=== PATIENT | male | born 1995 | race Two or more races ===

== ENCOUNTER 2016-08-08 07:03 | Emergency (ER) | payer OTHER ==
[2016-08-08 07:13] VITALS: BP 148/72; PULSE 68; TEMP 97.5; BMI 35.2
--- NOTE | 2016-08-08 08:30 | PDOC ---
History of Present Illness - General Chief Complaint: Pain Stated Complaint: ABD PAIN Time Seen by Provider: 08/08/16 08:05 History Source: Patient Exam Limitations: No Limitations - History of Present Illness Initial Comments: 08/08/16 08:34 Chief complaint: Burning with urination History of present illness: Patient is a 20-year-old male with a history of asthma here today due to burning with urination 2 weeks with no penile discharge. Patient reports that he was seen by his primary care provider 3 weeks ago due to noticing a knee minimally raised bumps (not filled with fluid) around the polanco of his penis. Patient reports to having unprotected sex with 2 females. Patient was not tested for STDs by his primary care physician. Patient is concerned that he might have a sexually transmitted disease and is requesting testing and treatment prophylactically. Patient denies any lesions on his penis or any testicular pain. Patient denies any urgency frequency or hematuria. 08/09/16 08:46 08/09/16 08:46 Timing/Duration: changing over time Severity: moderate (burning with urination ) Associated Symptoms: reports: other (no penile discharge ) Past History - Past Medical History Allergies/Adverse Reactions: Allergies Allergy/AdvReac Type Severity Reaction Status Date / Time Penicillins Allergy Severe Hives Verified 08/08/16 07:13 Sulfa (Sulfonamide Allergy Severe Hives Verified 08/08/16 07:13 Antibiotics) Home Medications: Ambulatory Orders NK [No Known Home Medication] 08/08/16 Asthma: Yes - Surgical History Appendectomy: Yes - Reproductive History Testicular Surgery: No Testicular Torsion: No - Immunization History Immunization Up to Date: Yes - Psycho/Social/Smoking Cessation Hx Anxiety: No Suicidal Ideation: No Smoking History: Never smoked Hx Alcohol Use: No Drug/Substance Use Hx: No Substance Use Type: None Review of Systems - Review of Systems Able to Perform ROS?: Yes Constitutional: No: Symptoms Reported HEENTM: No: Symptoms Reported Respiratory: No: Symptoms reported Cardiac (ROS): No: Symptoms Reported ABD/GI: No: Symptoms Reported : Yes: Burning (with urination for 2 weeks, ), Discharge, Other (tiny bumps around polanco of penis 3 weeks ago minimal presently ). No: Frequency, Flank Pain, Hematuria, Incontinence, Pain, Urgency, Testicular Mass, Testicular Swelling, Lesions, Testicular Pain Musculoskeletal: No: Symptoms Reported Integumentary: No: Symptoms Reported Neurological: No: Symptoms reported *Physical Exam - Vital Signs Last Vital Signs Temp Pulse Resp BP Pulse Ox 97.5 F L 68 20 148/72 99 08/08/16 07:10 08/08/16 07:10 08/08/16 07:10 08/08/16 07:10 08/08/16 07:10 - Physical Exam General Appearance: Yes: Appropriately Dressed Respiratory/Chest: positive: Lungs Clear, Normal Breath Sounds. negative: Chest Tender, Respiratory Distress Cardiovascular: positive: Regular Rhythm, Regular Rate, S1, S2 Male Genitalia: positive: normal genitalia (uncircumcised), other (few scattered non erythematous tiny raised bumps around polanco of penis ). negative : discharge, testicular tenderness, testicular mass, epididymus tender, inguinal hernia, hernia, hematuria Integumentary: positive: Other (see under male genitalia) Medical Decision Making - Medical Decision Making 08/08/16 08:36 Patient is a 20-year-old male with a history of asthma here today due to burning with urination 2 weeks with no penile discharge. Patient reports that he was seen by his primary care provider 3 weeks ago due to noticing a knee minimally raised bumps around the polanco of his penis. Patient reports to having unprotected sex with 2 females. Patient was not tested for STDs by his primary care physician. Patient is concerned that he might have a sexually transmitted disease and is requesting testing and treatment prophylactically. Patient denies any lesions on his penis or any testicular pain. Rule out sexually transmitted diseases Will treat prophylactically for GC and chlamydia Rule out HIV Plan: Chlamydia and gonorrhea amplification RPR negative HIV 1 and 2 for generation testing Azithromycin 2 g by mouth now will not treat with Rocephin due to patient having allergy to penicillin with hives in childhood Laboratory Tests 08/08/16 08:30 RPR Titer Nonreactive 08/08/16 09:08 08/08/16 09:09 08/08/16 10:24 Laboratory Tests 08/08/16 08:30 HIV 1&2 Antibody Screen Negative HIV P24 Antigen Negative 08/08/16 10:57 08/09/16 08:47 *DC/Admit/Observation/Transfer Diagnosis at time of Disposition: Unprotected sexual intercourse - Discharge Dispostion Disposition: HOME Condition at time of disposition: Stable - Referrals Referrals: Rohit Herring MD [Primary Care Provider] - - Patient Instructions Additional Instructions: Follow-up with your primary care provider within the next few days Return Here in 3 days for final results of testing that was done today that is still pending Return to emergency room if symptoms worsen any difficulty urinating or persistent symptoms Patient voiced understanding of discharge instructions and all questions were answered
[2016-08-08] MEDS ORDERED: AZITHROMYCIN 1 GM PACKET PO ONE (08:45)
[2016-08-08] MEDS ORDERED: AZITHROMYCIN 1 GM PACKET ONE (08:48)
[2016-08-08 09:39] LABS: HIV 1 & 2 AB NEGATIVE; HIV 1 AGp24 NEGATIVE
== END 2016-08-08 11:01 | disposition home or self-care (01) ==
LOC: JERFT 07:03 → JER 07:03 → JERFT 11:01
DX: Z11.3 Encounter for screening for infections with a predominantly sexual mode of transmission (principal)
CPT/HCPCS: 36415; 86593; 87389; 87491; 87591; 99281-25

== ENCOUNTER 2017-02-23 16:41 | Emergency (ER) | payer OTHER ==
[2017-02-23 16:46] VITALS: BP 122/83; PULSE 100; TEMP 98.4; BMI 34.9
[2017-02-23] MEDS ORDERED: KETOROLAC TROMETHAMINE 60 MG/2 ML VIAL IM ONE (17:30)
[2017-02-23] MEDS ORDERED: diphenhydrAMINE HCL 25 MG CAPSULE (FP) PO ONE ×2 (17:31→17:33)
[2017-02-23] MEDS ORDERED: METOCLOPRAMIDE HCL 10 MG TABLET (FP) PO ONE ×2 (17:31→17:39)
[2017-02-23] MEDS ORDERED: KETOROLAC TROMETHAMINE 60 MG/2 ML VIAL ONE (17:33)
--- NOTE | 2017-02-23 17:34 | PDOC ---
History of Present Illness - General Chief Complaint: Headache Stated Complaint: HEADACHE Time Seen by Provider: 02/23/17 17:17 History Source: Patient Exam Limitations: No Limitations - History of Present Illness Initial Comments: 02/23/17 17:41 My Chief Complaint' Right sided headache with photophobia History of present illness: Patient is a 21-year-old male with history of asthma here today complaining of right parietal headache that waxes and weans 4 days with photophobia and nausea today. Patient denies any head injury and. Patient reports that headache presently is approximately a 5. Patient reports taking ibuprofen yesterday with some relief of pain however pain return today. Patient has been able to sleep and has not woken up by pain. Patient fever, chills, or any other symptoms. He denies any nasal congestion or any discharge from his right eye. 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 Patient initially denied any neck pain however was able to appreciate neck pain with palpation. 02/23/17 17:46 02/23/17 18:48 Timing/Duration: reports: waxing and waning (for 4 days ) Severity: Yes: moderate (rt. parietal headache waxes and wanes) Associated Symptoms: reports: nausea/vomiting (nausea earlier today ), other. denies: fever/chills, loss of consciousness, ringing in ears, trouble walking, vision changes Past History - Past Medical History Allergies/Adverse Reactions: Allergies Allergy/AdvReac Type Severity Reaction Status Date / Time Penicillins Allergy Severe Hives Verified 02/23/17 16:46 Sulfa (Sulfonamide Allergy Severe Hives Verified 02/23/17 16:46 Antibiotics) Home Medications: Ambulatory Orders NK [No Known Home Medication] 08/08/16 Asthma: Yes - Surgical History Appendectomy: Yes - Reproductive History Testicular Surgery: No Testicular Torsion: No - Immunization History Immunization Up to Date: Yes - Suicide/Smoking/Psychosocial Hx Smoking History: Never smoked Hx Alcohol Use: No Drug/Substance Use Hx: No Substance Use Type: None Review of Systems - Review of Systems Able to Perform ROS?: Yes Constitutional: No: Symptoms Reported HEENTM: No: Symptoms Reported Respiratory: No: Symptoms reported Cardiac (ROS): No: Symptoms Reported ABD/GI: No: Symptoms Reported : No: Symptoms Reported Musculoskeletal: Yes: Neck Pain (did not report initially ) Integumentary: No: Symptoms Reported Neurological: Yes: Headache (rt. parietal ) *Physical Exam - Vital Signs Last Vital Signs Temp Pulse Resp BP Pulse Ox 98.4 F 100 H 20 122/83 97 02/23/17 16:43 02/23/17 16:43 02/23/17 16:43 02/23/17 16:43 02/23/17 16:43 - Physical Exam General Appearance: Yes: Appropriately Dressed HEENT: positive: EOMI, KATHY, Normal ENT Inspection Neck: positive: Tender lateral (right). negative: Lymphadenopathy (R), Lymphadenopathy (L), Rigidity, Tender midline Respiratory/Chest: positive: Lungs Clear, Normal Breath Sounds. 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 negative: Respond to painful stimul, Numbness, Sensory Deficit Medical Decision Making - Medical Decision Making 02/23/17 17:41 02/23/17 17:45 Patient is a 21-year-old male with history of asthma here today complaining of right parietal headache that waxes and weans 4 days with photophobia and nausea today. Patient denies any head injury and. Patient reports that headache presently is approximately a 5. Patient reports taking ibuprofen yesterday with some relief of pain however pain return today. Patient has been able to sleep and has not woken up by pain. Patient denies fever, chills, or any other symptoms. 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 Patient initially denied any neck pain however was able to appreciate neck pain with palpation. 02/23/17 17:46 r/o migraine neck strain rt. headache PLAN: toradol 60 mg IM now reglan 10 mg po now benadryl 25 mg po now throat C & S rapid negative 02/23/17 17:46 02/23/17 18:37 will flexeril 10 mg po q 8 hr prn # 21 days Naprosyn 500 mg q 12 hr prn pain # 14 tabs 02/23/17 18:49 *DC/Admit/Observation/Transfer Diagnosis at time of Disposition: Strain of neck muscle Qualifiers: Encounter type: initial encounter Qualified Code(s): S16.1XXA - Strain of muscle, fascia and tendon at neck level, initial encounter; S16.1XXA - Strain of muscle, fascia and tendon at neck level, initial encounter Headache Qualifiers: Headache type: unspecified Headache chronicity pattern: unspecified pattern Intractability: not intractable Qualified Code(s): R51 - Headache; R51 - Headache - Discharge Dispostion Disposition: HOME Condition at time of disposition: Stable - Patient Instructions Additional Instructions: Follow-up with your primary care provider within the next couple of days for further evaluation You may lie a warm compress to right lateral neck every few hours to help alleviate pain Do not drive or do anything that requires alertness when taking Flexeril or cyclobenzaprine Return to emergency room if symptoms worsen or new symptoms develop Patient voiced understanding of discharge instructions and all questions were answered
== END 2017-02-23 18:50 | disposition home or self-care (01) ==
LOC: JERFT 16:41
PROC: 3E0233Z Introduction of Anti-inflammatory into Muscle, Percutaneous Approach (ICD-10-PCS; principal; 2017-02-23)
DX: S16.1XXA Strain of muscle, fascia and tendon at neck level, initial encounter (principal); R51 Headache; X50.3XXA Overexertion from repetitive movements, initial encounter; Y93.89 Activity, other specified; Y92.89 Other specified places as the place of occurrence of the external cause; Y99.8 Other external cause status
CPT/HCPCS: 87070; 87077; 87430; 96372; 99281-25

== ENCOUNTER 2017-10-08 16:41 | Emergency (ER) | payer OTHER ==
[2017-10-08 16:59] VITALS: BP 128/63; PULSE 92; TEMP 98.1; BMI 35.9
--- NOTE | 2017-10-08 17:00 | PDOC ---
Rapid Medical Evaluation Chief Complaint: Back Pain Time Seen by Provider: 10/08/17 16:57 Medical Evaluation: Allergies Allergy/AdvReac Type Severity Reaction Status Date / Time Penicillins Allergy Severe Hives Verified 10/08/17 16:55 Sulfa (Sulfonamide Allergy Severe Hives Verified 10/08/17 16:55 Antibiotics) 10/08/17 16:58 I have performed a brief in-person evaluation of this patient. The patient presents with a chief complaint of: back pain x 1 week , atraumatc, - denies fevers/ Dysuria/ bowel px, No trauma known Pertinent physical exam findings: pale, no limp , mid to lumbar tension I have ordered the following: UA The patient will proceed to the ED for further evaluation.
[2017-10-08 17:31] LABS: URINE APPEARANCE CLEAR; URINE BILIRUBIN NEGATIVE (<2.0 mg/dL); URINE BLOOD NEGATIVE (NEGATIVE); URINE COLOR YELLOW; URINE GLUCOSE (UA) NEGATIVE (NEGATIVE); URINE KETONE NEGATIVE (NEGATIVE); URINE LEUK ESTERASE NEGATIVE (NEGATIVE); URINE NITRITE NEGATIVE (NEGATIVE); URINE PROTEIN NEGATIVE (NEGATIVE)
[2017-10-08] MEDS ORDERED: KETOROLAC TROMETHAMINE 60 MG/2 ML VIAL IM ONE (17:54)
[2017-10-08] MEDS ORDERED: RANITIDINE HCL 150 MG TABLET (FP) PO ONE (17:54)
--- NOTE | 2017-10-08 17:58 | PDOC ---
History of Present Illness - General Chief Complaint: Back Pain Stated Complaint: BACK PAIN Time Seen by Provider: 10/08/17 16:57 - History of Present Illness Initial Comments: 22-year-old healthy male presents for evaluation of atraumatic onset of mid back pain 10 days. He has a past medical history significant for asthma. He points to the left side of his thoracic or lumbar spine as the area of his discomfort. His pain is exacerbated with activity relieved with rest and free of radiation. He describes his pain as achy. No prior problems with that area of his back. No other associated symptoms. He denies fever, chills, night sweats , nausea, vomiting, diarrhea, and abdominal pain. 10/08/17 17:54 Past History - Past Medical History Allergies/Adverse Reactions: Allergies Allergy/AdvReac Type Severity Reaction Status Date / Time Penicillins Allergy Severe Hives Verified 10/08/17 16:55 Sulfa (Sulfonamide Allergy Severe Hives Verified 10/08/17 16:55 Antibiotics) Home Medications: Ambulatory Orders Cyclobenzaprine HCl [Flexeril 10 mg] 10 mg PO HS PRN #10 tablet 10/08/17 Ibuprofen [Motrin -] 600 mg PO TID #30 tablet 10/08/17 Asthma: Yes - Surgical History Appendectomy: Yes - Reproductive History Testicular Surgery: No Testicular Torsion: No - Immunization History Immunization Up to Date: Yes - Suicide/Smoking/Psychosocial Hx Smoking History: Never smoked Hx Alcohol Use: No Drug/Substance Use Hx: No Substance Use Type: None Review of Systems - Review of Systems Musculoskeletal: Yes: Back Pain All Other Systems: Reviewed and Negative *Physical Exam - Vital Signs Last Vital Signs Temp Pulse Resp BP Pulse Ox 98.1 F 92 H 18 128/63 97 10/08/17 16:56 10/08/17 16:56 10/08/17 16:56 10/08/17 16:56 10/08/17 16:56 - Physical Exam Comments: GENERAL: The patient is awake, alert, and fully oriented, in no acute distress. HEAD: Normal with no signs of trauma. EYES: Pupils equal, round and reactive to light, extraocular movements intact, sclera anicteric, conjunctiva clear. ENT: Ears normal, nares patent, oropharynx clear without exudates. Moist mucous membranes. NECK: Normal range of motion, supple without lymphadenopathy, JVD, or masses. LUNGS: Breath sounds equal, clear to auscultation bilaterally. No wheezes, and no crackles. HEART: Regular rate and rhythm, normal S1 and S2 without murmur, rub or gallop. ABDOMEN: Soft, nontender, normoactive bowel sounds. No guarding, no rebound. No masses. EXTREMITIES: Normal range of motion, no edema. No clubbing or cyanosis. No cords, erythema, or tenderness. NEUROLOGICAL: Cranial nerves II through XII grossly intact. Normal speech, normal gait. PSYCH: Normal mood, normal affect. SKIN: Warm, Dry, normal turgor, no rashes or lesions noted. The Dirocco lumbar spine is normal skin color and temperature. He has no tenderness mild palpable left-sided Dirocco lumbar musculature spasm. He has no CVA tenderness. He has 5 out of 5 strength in bilateral upper and lower extremities. He has no gross sensorimotor deficits he has a negative Spurling sign and negative straight leg raise test bilaterally. He is neurovascularly intact. 10/08/17 17:55 Medical Decision Making - Medical Decision Making Is is most likely a Dirocco lumbar strain. I'll await the urinalysis in the meantime treat his pain with Toradol and Zantac. 10/08/17 17:56 *DC/Admit/Observation/Transfer Diagnosis at time of Disposition: Strain of mid-back - Discharge Dispostion Disposition: HOME Condition at time of disposition: Stable Decision to Admit order: No - Prescriptions Prescriptions: Cyclobenzaprine HCl [Flexeril 10 mg] 10 mg PO HS PRN #10 tablet PRN Reason: Muscle Spasms Ibuprofen [Motrin -] 600 mg PO TID #30 tablet - Referrals Referrals: Rohit Herring MD [Primary Care Provider] - Roly Benjamin MD [Staff Physician] - - Patient Instructions Printed Discharge Instructions: DI for Back Strain or Sprain Additional Instructions: This is a strain of the muscles and your mid back. I've given you a prescription for an anti-inflammatory as well as a muscle relaxer. The anti- inflammatory should be taken with food. The muscle relaxer is one pill prior to bedtime. It's important few to follow-up with spine surgery for further evaluation and treatment options. Return to the emergency room if your symptoms worsen or go unresolved prior to follow-up. - Post Discharge Activity
[2017-10-08] MEDS ORDERED: KETOROLAC TROMETHAMINE 60 MG/2 ML VIAL ONE (18:18)
[2017-10-08] MEDS ORDERED: RANITIDINE HCL 150 MG TABLET (FP) ONE (18:18)
== END 2017-10-08 18:53 | disposition home or self-care (01) ==
LOC: JERFT 16:41
PROC: 3E0233Z Introduction of Anti-inflammatory into Muscle, Percutaneous Approach (ICD-10-PCS; principal; 2017-10-08)
DX: S39.012A Strain of muscle, fascia and tendon of lower back, initial encounter (principal); X58.XXXA Exposure to other specified factors, initial encounter; Y93.89 Activity, other specified; Y92.89 Other specified places as the place of occurrence of the external cause; Y99.8 Other external cause status
CPT/HCPCS: 81003; 96372; 99281-25

== ENCOUNTER 2018-06-26 10:26 | Emergency (ER) | payer OTHER ==
[2018-06-26] MEDS ORDERED: IBUPROFEN 400 MG TABLET (FP) PO ONE ×2 (10:47→10:51)
[2018-06-26 10:52] VITALS: BP 160/90; PULSE 114; TEMP 102; BMI 35.5
[2018-06-26] MEDS ORDERED: KETOROLAC TROMETHAMINE 10 MG TABLET PO ONE (11:24)
--- NOTE | 2018-06-26 11:32 | PDOC ---
History of Present Illness - General Chief Complaint: Cold Symptoms Stated Complaint: FLU SYMSPTOMS Time Seen by Provider: 06/26/18 11:05 History Source: Patient Exam Limitations: No Limitations - History of Present Illness Initial Comments: 06/26/18 13:07 States had onset of chills, body aches, fevers Tmax 102 at home, sore throat and ear pain. And moist nonproductive cough. States has been using his Proventil pump with some resolved. Was exposed to family members with influenza this week Timing/Duration: reports: just prior to arrival Severity: reports: moderate Associated Symptoms: reports: chest pain/soreness, cough, earache, fever/chills , nasal congestion, nasal drainage, sore throat Past History - Travel Traveled outside of the country in the last 30 days: No Close contact w/someone who was outside of country & ill: No - Past Medical History Allergies/Adverse Reactions: Allergies Allergy/AdvReac Type Severity Reaction Status Date / Time Penicillins Allergy Severe Hives Verified 06/26/18 10:45 Sulfa (Sulfonamide Allergy Severe Hives Verified 06/26/18 10:45 Antibiotics) Home Medications: Ambulatory Orders Acetaminophen [Tylenol] 650 mg PO QID PRN 06/26/18 Oseltamivir Phosphate [Tamiflu -] 75 mg PO BID #10 capsule 06/26/18 Phenylephrine/Acetaminophn/Cpm [Contac Cold-Flu Caplet] 1 each PO ASDIR Asthma: Yes - Surgical History Appendectomy: Yes - Reproductive History Testicular Surgery: No Testicular Torsion: No - Immunization History Immunization Up to Date: Yes - Suicide/Smoking/Psychosocial Hx Smoking History: Never smoked Hx Alcohol Use: No Drug/Substance Use Hx: No Substance Use Type: None Respiratory Specific PMHX - Complaint Specific PMHX Angina: No Bronchitis: Yes Pneumonia: No Pulmonary Embolus: No TB (Tuberculosis): No Review of Systems - Review of Systems Able to Perform ROS?: Yes Is the patient limited Russian proficient: Yes Constitutional: Yes: Symptoms Reported, See HPI, Malaise HEENTM: Yes: Symptoms Reported Respiratory: Yes: See HPI, Cough ABD/GI: Yes: Symptoms Reported Musculoskeletal: Yes: Symptoms Reported, See HPI, Back Pain All Other Systems: Reviewed and Negative *Physical Exam - Vital Signs Last Vital Signs Temp Pulse Resp BP Pulse Ox 102 F H 114 H 18 160/90 96 06/26/18 10:51 06/26/18 10:51 06/26/18 10:51 06/26/18 10:51 06/26/18 10:51 - Physical Exam Comments: 06/26/18 13:09 GENERAL: [ The pateint is awake, alert, and appropriately interactive.] EYES: [The pupils are equal, round, and reactive to light, with clear, conjunctiva.but glassy] NOSE: [The nose with clear drainage EARS: [The ear canals and tympanic membranes are congested but landmarks easily visualed ] THROAT: [The oropharynx is clear with erythema, no exudates. The mucous membranes are moist.] NECK: [The neck is supple with mildly tender adenopathy, no menigemous] CHEST: [The lungs are coarse but clear without crackles, or wheezes.] HEART: [Heart is regular rhythm, with normal S1 and S2, no murmurs.] ABDOMEN: [The abdomen is soft and nontender with normal bowel sounds. There is no organomegaly and no mass. There is no guarding or rebound.] EXTREMITIES: [Extremities are normal.] NEURO: [Behavior is normal for age.cranky but easily, Tone is normal.] SKIN: [Skin is unremarkable without rash or swelling. There is no bruising, and there are no other signs of injury.] General Appearance: Yes: Appropriately Dressed Moderate Sedation - Procedure Monitoring Vital Signs: Procedure Monitoring Vital Signs Temperature 102 F H 06/26/18 10:51 Pulse Rate 114 H 06/26/18 10:51 Respiratory Rate 18 06/26/18 10:51 Blood Pressure 160/90 06/26/18 10:51 O2 Sat by Pulse Oximetry (%) 96 06/26/18 10:51 ED Treatment Course - Medications Given in the ED: ED Medications Discontinued Medications Generic Name Dose Route Start Last Admin Trade Name Freq PRN Reason Stop Dose Admin Ibuprofen 800 mg 06/26/18 10:51 06/26/18 10:51 Motrin - PO 06/26/18 10:52 800 mg NOW ONE Administration Progress Note - Progress Note Progress Note: All clinical evidence indicates influenza With Tamiflu *DC/Admit/Observation/Transfer Diagnosis at time of Disposition: Influenzal acute upper respiratory infection - Discharge Dispostion Disposition: HOME Condition at time of disposition: Stable Decision to Admit order: No - Prescriptions Prescriptions: Oseltamivir Phosphate [Tamiflu -] 75 mg PO BID #10 capsule - Referrals Referrals: Rohit Herring MD [Primary Care Provider] - - Patient Instructions Printed Discharge Instructions: DI for Viral Upper Respiratory Infection -- Adult Additional Instructions: Rest, drink lots of fluids: Teas, water, soups, Pedialyte Saltwater gargles Steamy showers/seem to face break up mucus Old-fashioned treatments help! Avoid contact with others until fevers and cough resolved as this is very contagious Lots of handwashing and good hygiene Continue [id number] medications for symptomatic relief Tylenol or Motrin for fever and pain Take all of Tamiflu as directed: 1 tab every 12 hours for 5 days Followup with private physician in one to 2 days as needed or if worsening Return to emergency department for worsened symptoms, fevers, dehydration Influenza takes between 5 and 7 days for resolution To not participate in any activity, work, or school until fevers and cough are gone for at least one day - Post Discharge Activity Forms/Work/School Notes: Back to Work
== END 2018-06-26 11:45 | disposition home or self-care (01) ==
LOC: JERFT 10:26
DX: J11.1 Influenza due to unidentified influenza virus with other respiratory manifestations (principal)
CPT/HCPCS: 99281-25

== ENCOUNTER 2021-10-05 08:37 | Emergency (ER) | payer OTHER ==
[2021-10-05 09:15] VITALS: BP 128/79; PULSE 66; TEMP 98; BMI 34.0
[2021-10-05] MEDS ORDERED: IBUPROFEN 400 MG TABLET (FP) PO ONE ×2 (09:22→09:36)
== END 2021-10-05 12:39 | disposition home or self-care (01) ==
LOC: JER 08:37
DX: R51.9 Headache, unspecified (principal)
CPT/HCPCS: 99283-25

== ENCOUNTER 2022-03-26 13:21 | Emergency (ER) | payer OTHER ==
[2022-03-26 15:00] VITALS: BP 136/77; PULSE 84; RESP 18; TEMP 97.4; BMI 38.9
[2022-03-26] MEDS ORDERED: ALBUTEROL SO4 2.5/IPRATROPIUM 0.5 INH SOL 3 ML VIAL.NEB. NEB ONE ×2 (16:48→17:40)
== END 2022-03-26 19:00 | disposition home or self-care (01) ==
LOC: JER 13:21
PROC: 3E0F7GC Introduction of Other Therapeutic Substance into Respiratory Tract, Via Natural or Artificial Opening (ICD-10-PCS; principal; 2022-03-26)
DX: J45.909 Unspecified asthma, uncomplicated (principal); R07.9 Chest pain, unspecified
CPT/HCPCS: 93005; 93010; 99283-25

== ENCOUNTER 2022-07-25 23:44 | Emergency (ER) | payer OTHER ==
[2022-07-25 23:49] VITALS: BP 145/80; PULSE 74; RESP 18; TEMP 97.9; BMI 34.3
[2022-07-26] MEDS ORDERED: predniSONE 20 MG TABLET (UD) PO ONE (00:18)
[2022-07-26] MEDS ORDERED: IBUPROFEN 400 MG TABLET (FP) PO ONE ×2 (00:19→00:25)
[2022-07-26] MEDS ORDERED: predniSONE 20 MG TABLET (UD) ONE (00:25)
[2022-07-26] MEDS: ALBUTEROL SO4 2.5/IPRATROPIUM 0.5 INH SOL 3 ML VIAL.NEB. NEB SCH ×2 (00:49→01:15)
[2022-07-26] MEDS ORDERED: LORATADINE 10 MG TABLET PO ONE (01:43)
[2022-07-26] MEDS ORDERED: LORATADINE 10 MG TABLET ONE (01:57)
== END 2022-07-26 02:06 | disposition home or self-care (01) ==
LOC: JER 23:44
PROC: 3E0F7GC Introduction of Other Therapeutic Substance into Respiratory Tract, Via Natural or Artificial Opening (ICD-10-PCS; principal; 2022-07-26)
DX: J45.998 Other asthma (principal); Z20.822 Contact with and (suspected) exposure to COVID-19
CPT/HCPCS: 0241U-QW; 71046-TC-FY; 99284-25

== ENCOUNTER 2022-09-16 22:06 | Emergency (ER) | payer OTHER ==
[2022-09-16 22:14] VITALS: BP 128/64; PULSE 74; RESP 20; TEMP 98.2; BMI 34.1
[2022-09-16] MEDS ORDERED: DEXAMETHASONE SOD PHOSPHATE 10 MG/1 ML VIAL PO ONE (22:48)
[2022-09-16] MEDS ORDERED: ACETAMINOPHEN 500 MG TABLET (FP) PO ONE (22:48)
[2022-09-16] MEDS ORDERED: ACETAMINOPHEN 500 MG TABLET (FP) ONE (22:49)
[2022-09-16] MEDS ORDERED: DEXAMETHASONE SOD PHOSPHATE 10 MG/1 ML VIAL ONE (22:50)
== END 2022-09-16 23:26 | disposition home or self-care (01) ==
LOC: JER 22:06
DX: J02.9 Acute pharyngitis, unspecified (principal)
CPT/HCPCS: 99283-25; J1100

== ENCOUNTER 2023-02-12 16:04 | Emergency (ER) | payer SELFPAY ==
[2023-02-12 16:11] VITALS: BP 100/64; PULSE 85; RESP 20; TEMP 97.6; BMI 29.2
[2023-02-12 18:42] LABS: HEMATOCRIT 50.8 % (35.4-49); HEMOGLOBIN 17.7 GM/dL (11.7-16.9); MCH 29.5 pg (25.7-33.7); MCHC 34.8 g/dl (32.0-35.9); MEAN CELL VOLUME 84.7 fl (80-96); MEAN PLT VOLUME 9.7 fl (7.5-11.1); PLATELET COUNT 264 10^3/uL (134-434); RDW 13.5 % (11.9-15.9); WHITE BLOOD COUNT 5.6 K/mm3 (4.0-10.0)
[2023-02-12 19:00] LABS: CHLORIDE 104 mmol/L (98-107); POTASSIUM 4.7 mmol/L (3.5-5.1); SODIUM 137 mmol/L (136-145)
[2023-02-12 19:02] LABS: CALCIUM 9.6 mg/dL (8.5-10.1)
[2023-02-12 19:03] LABS: ALBUMIN 4.2 g/dl (3.4-5.0); ANION GAP 6 MMOL/L (8-16); CO2 28 mmol/L (21-32); GLUCOSE,RANDOM 86 mg/dL (74-106)
[2023-02-12 19:06] LABS: CREATININE 1.3 mg/dL (0.55-1.3); SGOT/AST 20 U/L (15-37); SGPT/ALT 37 U/L (13-61)
[2023-02-12 19:08] LABS: BILIRUBIN,TOTAL 0.6 mg/dL (0.2-1); TOT PROT 8.2 g/dl (6.4-8.2)
[2023-02-12 19:09] LABS: ALK PHOS 58 U/L (45-117)
[2023-02-12 19:54] LABS: PH,URINE 6.5 (5.0-8.0); URINE APPEARANCE CLEAR; URINE BILIRUBIN NEGATIVE (NEGATIVE); URINE COLOR YELLOW; URINE GLUCOSE (UA) NEGATIVE (NEGATIVE); URINE KETONE TRACE (NEGATIVE); URINE LEUK ESTERASE NEGATIVE (NEGATIVE); URINE NITRITE NEGATIVE (NEGATIVE); URINE PROTEIN NEGATIVE (NEGATIVE); URINE UROBILINOGEN 0.2 mg/dL (0.2-1.0)
[2023-02-12 20:32] LABS: PHENCYCLIDINE,URINE NEGATIVE (NEGATIVE); URINE BARBITURATES NEGATIVE (NEGATIVE); URINE BENZODIAZEPINES NEGATIVE (NEGATIVE)
[2023-02-12 20:33] LABS: COCAINE, UR NEGATIVE (NEGATIVE); URINE AMPHETAMINES NEGATIVE (NEGATIVE)
[2023-02-12 20:52] LABS: METHADONE, UR NEGATIVE (NEGATIVE); OPIATES, URI NEGATIVE (NEGATIVE)
== END 2023-02-12 22:04 | disposition home or self-care (01) ==
LOC: JER 16:04
DX: R11.2 Nausea with vomiting, unspecified (principal); R42 Dizziness and giddiness; R53.1 Weakness; R23.1 Pallor; M79.641 Pain in right hand; M79.642 Pain in left hand; R51.9 Headache, unspecified
CPT/HCPCS: 36415; 70450-TC; 71046-TC-FY; 80053; 80307; 81003; 84484; 85027; 86850; 86900; 86901; 93005; 93010; 99285-25

== ENCOUNTER 2023-05-09 01:25 | Emergency (ER) | payer BC ==
[2023-05-09 02:01] VITALS: BMI 33.7
[2023-05-09] MEDS ORDERED: KETOROLAC TROMETHAMINE 30 MG/1 ML VIAL IM ONE (03:34)
[2023-05-09] MEDS ORDERED: KETOROLAC TROMETHAMINE 30 MG/1 ML VIAL ONE (03:57)
[2023-05-09 04:33] VITALS: BP 124/70; PULSE 82; RESP 18; TEMP 97.8
== END 2023-05-09 04:33 | disposition home or self-care (01) ==
LOC: JER 01:25
DX: M25.512 Pain in left shoulder (principal); S46.812A Strain of other muscles, fascia and tendons at shoulder and upper arm level, left arm, initial encounter; X50.0XXA Overexertion from strenuous movement or load, initial encounter; Y99.0 Civilian activity done for income or pay
CPT/HCPCS: 71046-TC-FY; 93005; 93010; 99284-25

== ENCOUNTER 2023-07-21 23:53 | Emergency (ER) | payer BC ==
[2023-07-22 00:13] VITALS: TEMP 98.7; BMI 34.3
[2023-07-22] MEDS ORDERED: ALBUTEROL SO4 2.5/IPRATROPIUM 0.5 INH SOL 3 ML VIAL.NEB. NEB ONE (00:30)
[2023-07-22] MEDS ORDERED: methylPREDNISolone NA SUCC 125 MG/2 ML VIAL ONE (00:31)
[2023-07-22] MEDS ORDERED: MAGNESIUM SULFATE IN WATER 2 GM/50 ML IVPB IVPB ONE (00:31)
[2023-07-22] MEDS: methylPREDNISolone NA SUCC 125 MG/2 ML VIAL IVPUSH ONE (00:46)
[2023-07-22] MEDS: MAGNESIUM SULFATE IN WATER 2 GM/50 ML IVPB IVPB ONE (00:46)
[2023-07-22] MEDS: ALBUTEROL SO4 2.5/IPRATROPIUM 0.5 INH SOL 3 ML VIAL.NEB. NEB ONE ×2 (00:46)
[2023-07-22 00:52] LABS: VENOUS BASE EXCESS -2.4 mmol/L (-2-2); VENOUS O2 SATURATION 61.4 % (70-80); VENOUS PCO2 46.7 mmHg (38-52); VENOUS PH 7.328 (7.310-7.410)
[2023-07-22 00:54] LABS: BASO % 0.3 % (0-2.0); EOS % 7.5 % (0-4.5); HEMATOCRIT 45.3 % (35.4-49); HEMOGLOBIN 15.6 GM/dL (11.7-16.9); LYMPH % 21.1 % (8-40); MCH 29.5 pg (25.7-33.7); MCHC 34.5 g/dl (32.0-35.9); MEAN CELL VOLUME 85.5 fl (80-96); MEAN PLT VOLUME 9.4 fl (7.5-11.1); MONO % 8.4 % (3.8-10.2); NEUT % 62.7 % (42.8-82.8); PLATELET COUNT 201 10^3/uL (134-434); RBC 5.29 M/mm3 (4.00-5.60); RDW 13.4 % (11.9-15.9); WHITE BLOOD COUNT 6.4 K/mm3 (4.0-10.0)
[2023-07-22 01:18] LABS: POTASSIUM 3.9 mmol/L (3.5-5.1)
[2023-07-22 01:20] LABS: CALCIUM 9.3 mg/dL (8.5-10.1)
[2023-07-22 01:21] LABS: ALBUMIN 3.7 g/dl (3.4-5.0); BLOOD UREA NITROGEN 11.7 mg/dL (7-18); MAGNESIUM 2.1 mg/dL (1.8-2.4)
[2023-07-22 01:24] LABS: CREATININE 0.9 mg/dL (0.55-1.3)
[2023-07-22 01:25] LABS: BILIRUBIN,TOTAL 0.6 mg/dL (0.2-1)
[2023-07-22 01:26] LABS: TOT PROT 6.9 g/dl (6.4-8.2)
[2023-07-22] MEDS ORDERED: ALBUTEROL SO4 0.083% IH SOL 2.5 MG/3 ML VIAL.NEB. NEB ONE (01:53)
[2023-07-22] MEDS ORDERED: ACETAMINOPHEN 325 MG TABLET (FP) ONE (01:53)
[2023-07-22] MEDS: ACETAMINOPHEN 325 MG TABLET (FP) PO ONE (01:57)
[2023-07-22] MEDS: ALBUTEROL SULFATE 0.021% (0.63 MG/3 ML) VIAL.NEB NEB ONE (01:57)
[2023-07-22] MEDS: ALBUTEROL SO4 0.083% IH SOL 2.5 MG/3 ML VIAL.NEB. NEB ONE (01:58)
[2023-07-22 02:14] VITALS: BP 116/60; PULSE 78; RESP 20
[2023-07-22] MEDS: ONDANSETRON 4 MG/2 ML VIAL IVPUSH ONE (03:30)
[2023-07-22] MEDS ORDERED: AZITHROMYCIN 500 MG TABLET ONE (03:31)
[2023-07-22] MEDS: AZITHROMYCIN 500 MG TABLET PO ONE (03:37)
== END 2023-07-22 03:41 | disposition home or self-care (01) ==
LOC: JER 23:53
PROC: 3E033GC Introduction of Other Therapeutic Substance into Peripheral Vein, Percutaneous Approach (ICD-10-PCS; principal; 2023-07-22)
PROC: 3E033GC Introduction of Other Therapeutic Substance into Peripheral Vein, Percutaneous Approach (ICD-10-PCS; 2023-07-22)
PROC: 3E0F7GC Introduction of Other Therapeutic Substance into Respiratory Tract, Via Natural or Artificial Opening (ICD-10-PCS; 2023-07-22)
PROC: 3E0F7GC Introduction of Other Therapeutic Substance into Respiratory Tract, Via Natural or Artificial Opening (ICD-10-PCS; 2023-07-22)
PROC: 3E0F7GC Introduction of Other Therapeutic Substance into Respiratory Tract, Via Natural or Artificial Opening (ICD-10-PCS; 2023-07-22)
DX: J45.901 Unspecified asthma with (acute) exacerbation (principal); R07.9 Chest pain, unspecified
CPT/HCPCS: 36415; 71045-TC-FY; 80053; 82803; 83735; 84484; 85025; 93005; 93010; 99285-25

== ENCOUNTER 2023-08-19 23:53 | Emergency (ER) | payer BC ==
[2023-08-19 23:58] VITALS: BMI 34.3
[2023-08-20 03:17] LABS: BASO % 0.2 % (0-2.0); EOS % 8.2 % (0-4.5); HEMATOCRIT 45.9 % (35.4-49); HEMOGLOBIN 15.8 GM/dL (11.7-16.9); MCH 29.4 pg (25.7-33.7); MCHC 34.4 g/dl (32.0-35.9); MEAN CELL VOLUME 85.4 fl (80-96); MONO % 8.3 % (3.8-10.2); NEUT % 40.3 % (42.8-82.8); PLATELET COUNT 243 10^3/uL (134-434); RBC 5.38 M/mm3 (4.00-5.60); RDW 13.6 % (11.9-15.9); WHITE BLOOD COUNT 5.2 K/mm3 (4.0-10.0)
[2023-08-20 03:25] LABS: INR 1.11 (0.83-1.09); PROTHROMBIN TIME (PATIENT) 12.9 SEC (9.7-13.0)
[2023-08-20 03:28] LABS: ACTIVATED PTT 32.5 SECONDS (25.2-36.5)
[2023-08-20 03:39] LABS: POTASSIUM 4.3 mmol/L (3.5-5.1)
[2023-08-20 03:41] LABS: CALCIUM 9.7 mg/dL (8.5-10.1)
[2023-08-20 03:42] LABS: ALBUMIN 4.1 g/dl (3.4-5.0); MAGNESIUM 1.9 mg/dL (1.8-2.4)
[2023-08-20 03:45] LABS: CREATININE 0.9 mg/dL (0.55-1.3); PHOSPHOROUS 3.4 mg/dL (2.5-4.9)
[2023-08-20 03:47] LABS: TOT PROT 7.6 g/dl (6.4-8.2)
[2023-08-20] MEDS ORDERED: METOCLOPRAMIDE HCL INJECTION 10 MG/2 ML VIAL ONE (04:39)
[2023-08-20] MEDS: SODIUM CHLORIDE 0.9% 500 ML INFUS.BAG IV ONE (04:46)
[2023-08-20] MEDS: METOCLOPRAMIDE HCL INJECTION 10 MG/2 ML VIAL IVPB ONE (04:46)
[2023-08-20 06:52] VITALS: BP 118/69; PULSE 55; RESP 16; TEMP 98.6
== END 2023-08-20 06:55 | disposition home or self-care (01) ==
LOC: JER 23:53
PROC: 3E033GC Introduction of Other Therapeutic Substance into Peripheral Vein, Percutaneous Approach (ICD-10-PCS; principal; 2023-08-20)
DX: R42 Dizziness and giddiness (principal); R53.1 Weakness; R55 Syncope and collapse
CPT/HCPCS: 36415; 70450-TC; 70496-TC; 70498-TC; 71046-TC-FY; 80053; 83735; 84100; 84484; 85025; 85610; 85730; 93005; 93010; 99285-25

== ENCOUNTER 2023-11-05 16:18 | Emergency (ER) | payer BC ==
[2023-11-05 16:27] VITALS: BP 125/69; PULSE 79; RESP 20; TEMP 98.7; BMI 32.1
== END 2023-11-05 17:16 | disposition left against medical advice (07) ==
LOC: JER 16:18
DX: R07.9 Chest pain, unspecified (principal)
CPT/HCPCS: 93005; 93010; 99283-25

== ENCOUNTER 2024-01-07 23:49 | Emergency (ER) | payer BC ==
[2024-01-07 23:57] VITALS: BP 156/79; PULSE 76; RESP 18; TEMP 97.3; BMI 33.7
[2024-01-08] MEDS ORDERED: ALBUTEROL SO4 2.5/IPRATROPIUM 0.5 INH SOL 3 ML VIAL.NEB. NEB ONE ×2 (00:43→01:08)
[2024-01-08] MEDS ORDERED: predniSONE 20 MG TABLET (UD) ONE (00:43)
[2024-01-08] MEDS: ALBUTEROL SO4 2.5/IPRATROPIUM 0.5 INH SOL 3 ML VIAL.NEB. NEB ONE (00:53)
[2024-01-08] MEDS: predniSONE 20 MG TABLET (UD) PO ONE (00:53)
[2024-01-08] MEDS: ALBUTEROL SO4 0.083% IH SOL 2.5 MG/3 ML VIAL.NEB. NEB ONE (01:35)
== END 2024-01-08 01:45 | disposition home or self-care (01) ==
LOC: JER 23:49
PROC: 3E0F7GC Introduction of Other Therapeutic Substance into Respiratory Tract, Via Natural or Artificial Opening (ICD-10-PCS; principal; 2024-01-08)
PROC: 3E0F7GC Introduction of Other Therapeutic Substance into Respiratory Tract, Via Natural or Artificial Opening (ICD-10-PCS; 2024-01-08)
DX: R06.02 Shortness of breath (principal); J45.901 Unspecified asthma with (acute) exacerbation
CPT/HCPCS: 99284-25

== ENCOUNTER 2024-04-27 17:06 | Emergency (ER) | payer BC ==
[2024-04-27 17:19] VITALS: BP 130/74; PULSE 87; RESP 15; TEMP 98.1; BMI 35.0
[2024-04-27] MEDS ORDERED: ACETAMINOPHEN 325 MG TABLET (FP) ONE (17:50)
== END 2024-04-27 18:20 | disposition home or self-care (01) ==
LOC: FER 17:06
PROC: 0H96XZZ Drainage of Back Skin, External Approach (ICD-10-PCS; principal; 2024-04-27)
DX: L72.8 Other follicular cysts of the skin and subcutaneous tissue (principal)
CPT/HCPCS: 10160; 99284-25

== ENCOUNTER 2024-05-05 00:52 | Emergency (ER) | payer BC ==
[2024-05-05 00:56] VITALS: BP 144/81; PULSE 85; RESP 16; TEMP 98.9; BMI 41.1
[2024-05-05] MEDS ORDERED: DOXYCYCLINE HYCLATE 100 MG CAPSULE PO ONE (04:25)
[2024-05-05] MEDS: DOXYCYCLINE HYCLATE 100 MG CAPSULE PO ONE (04:31)
== END 2024-05-05 04:43 | disposition home or self-care (01) ==
LOC: JER 00:52
PROC: 0H96XZZ Drainage of Back Skin, External Approach (ICD-10-PCS; principal; 2024-05-05)
DX: L02.212 Cutaneous abscess of back [any part, except buttock and flank] (principal)
CPT/HCPCS: 99283-25

== ENCOUNTER 2024-09-04 04:10 | Emergency (ER) | payer BC ==
[2024-09-04 04:17] VITALS: BP 127/72; PULSE 75; RESP 20; TEMP 97.7; BMI 34.8
[2024-09-04] MEDS ORDERED: predniSONE 20 MG TABLET (UD) ONE (05:10)
[2024-09-04] MEDS: predniSONE 20 MG TABLET (UD) PO ONE (05:18)
[2024-09-04] MEDS: ALBUTEROL SO4 2.5/IPRATROPIUM 0.5 INH SOL 3 ML VIAL.NEB. NEB SCH (05:18)
== END 2024-09-04 06:19 | disposition home or self-care (01) ==
LOC: JER 04:10
PROC: 3E0F7GC Introduction of Other Therapeutic Substance into Respiratory Tract, Via Natural or Artificial Opening (ICD-10-PCS; principal; 2024-09-04)
DX: J45.909 Unspecified asthma, uncomplicated (principal); R06.02 Shortness of breath; R07.89 Other chest pain; R09.81 Nasal congestion; R09.82 Postnasal drip; H57.89 Other specified disorders of eye and adnexa
CPT/HCPCS: 99283-25

== ENCOUNTER 2025-03-08 10:49 | Inpatient (IN) | payer BC ==
[2025-03-08] MEDS ORDERED: ACETAMINOPHEN INJECTION 100 ML ONE (12:14)
[2025-03-08] MEDS ORDERED: KETOROLAC TROMETHAMINE 15 MG/ML VIAL ONE (12:14)
[2025-03-08] MEDS: ACETAMINOPHEN 1000 MG/100 ML BAG IVPB ONE (12:30)
[2025-03-08] MEDS: KETOROLAC TROMETHAMINE 15 MG/ML VIAL IVPUSH ONE (12:30)
[2025-03-08 12:48] LABS: ABSOLUTE IMMATURE GRANULOCYTES 0.01 x10^3/uL (0.0-0.031); BASOPHILS # 0.03 x10^3/uL (0.01-0.08); EOSINOPHIL % 7.1 % (0.8-7.0); EOSINOPHILS # 0.43 x10^3/uL (0.04-0.54); MCHC 33.8 g/dl (32.3-36.5); MEAN CELL VOLUME 85.9 fl (79.0-92.2); MEAN PLT VOLUME 11.0 fl (9.4-12.4); MONOCYTE # 0.51 x10^3/uL (0.30-0.82); MONOCYTE % 8.4 % (5.3-12.2); RDW 12.0 % (11.9-15.3)
[2025-03-08 13:26] LABS: GLUCOSE,RANDOM 94.0 mg/dL (74-106)
[2025-03-08 13:27] LABS: TOT PROT 7.2 g/dl (6.4-8.2)
[2025-03-08 13:28] LABS: CO2 24.0 mmol/L (21-32)
[2025-03-08 13:29] LABS: ALK PHOS 60.0 U/L (40-150)
[2025-03-08 13:32] LABS: CREATININE 0.93 mg/dL (0.55-1.3); SGOT/AST 26.0 U/L (5-34); SGPT/ALT 39.0 U/L (0-55)
[2025-03-08 14:59] VITALS: RESP 18
[2025-03-08] MEDS ORDERED: VANCOMYCIN HCL 1,500 MG in DEXTROSE 5%-WATER - 500 ML IVPB ONE (16:48)
[2025-03-08] MEDS ORDERED: CEFEPIME 2 GM/100 ML BAG IVPB ONE (17:10)
[2025-03-08] MEDS ORDERED: MORPHINE SULFATE 2 MG/ML SYRINGE ONE (17:10)
[2025-03-08] MEDS ORDERED: ALBUTEROL SO4 HFA INHALER IH PRN (17:17)
[2025-03-08] MEDS: morphine CARPU-JECT 2 MG/1 ML DISP.SYRIN IVPUSH ONE (17:22)
[2025-03-08] MEDS: CEFEPIME HCL 2 GM VIAL (RESTRICTED TO ID) IVPB ONE (17:23)
[2025-03-08] MEDS: KETOROLAC TROMETHAMINE 15 MG/ML VIAL IVPUSH PRN (18:26)
[2025-03-08] MEDS: VANCOMYCIN PREMIX 1.5 GM 1,500 MG/300 ML BAG IVPB ONE (18:38)
[2025-03-08] MEDS: OFLOXACIN 0.3% OTIC SOLUTION 5 ML BOTTLE AS SCH (20:59)
[2025-03-08] MEDS: BUDESONIDE/FORMETEROL FUMARATE 160/4.5 mcg INHALER IH SCH (21:00)
[2025-03-08] MEDS: ACETAMINOPHEN 500 MG TABLET (FP) PO PRN (21:03)
[2025-03-08] MEDS: MORPHINE SULFATE 2 MG/ML SYRINGE IVPUSH PRN (23:37)
[2025-03-09] MEDS: VANCOMYCIN/WATER 1250 MG 1,250 MG/250 ML BAG IVPB SCH (05:02)
[2025-03-09 05:16] VITALS: BP 139/73; PULSE 65; TEMP 97.5
[2025-03-09] MEDS ORDERED: VANCOMYCIN/WATER 1250 MG 1,250 MG/250 ML BAG IVPB SCH (06:00)
[2025-03-09 07:43] LABS: ABSOLUTE IMMATURE GRANULOCYTES 0.01 x10^3/uL (0.0-0.031); MEAN PLT VOLUME 11.2 fl (9.4-12.4)
[2025-03-09 07:53] LABS: BASOPHILS # 0.02 x10^3/uL (0.01-0.08); EOSINOPHIL % 6.9 % (0.8-7.0); EOSINOPHILS # 0.39 x10^3/uL (0.04-0.54); MCHC 33.8 g/dl (32.3-36.5); MEAN CELL VOLUME 85.8 fl (79.0-92.2); MONOCYTE # 0.65 x10^3/uL (0.30-0.82); MONOCYTE % 11.4 % (5.3-12.2); RDW 12.3 % (11.9-15.3)
[2025-03-09] MEDS ORDERED: CEFEPIME 2 GM in DEXTROSE 5%-WATER 100 ML IVPB SCH (08:00)
[2025-03-09] MEDS ORDERED: CEFEPIME HCL 2 GM VIAL (RESTRICTED TO ID) IVPB SCH (08:00)
[2025-03-09 08:14] LABS: GLUCOSE,RANDOM 86.0 mg/dL (74-106)
[2025-03-09 08:16] LABS: CO2 23.0 mmol/L (21-32)
[2025-03-09 08:19] LABS: CREATININE 1.0 mg/dL (0.55-1.3)
[2025-03-09] MEDS: CEFEPIME 2 GM in DEXTROSE 5%-WATER 100 ML IVPB SCH (08:44)
[2025-03-09 13:16] VITALS: BMI 36.7
[2025-03-09] MEDS ORDERED: HEPARIN NA (PORCINE) 5,000 UNITS/ML 1ML VIAL SQ SCH (22:00)
== END 2025-03-09 13:53 | disposition home or self-care (01) | DRG 153 ==
LOC: JERFT 10:49 → JERBED 16:22 → J5S 17:55
PROVIDERS: ADMIT Internal Medicine
DX: H70.002 Acute mastoiditis without complications, left ear (principal); H60.502 Unspecified acute noninfective otitis externa, left ear; J45.909 Unspecified asthma, uncomplicated
CPT/HCPCS: 36415; 70481-TC; 80048; 80053; 85025; 99285-25